=== PATIENT | male | born 1940 | race Caucasian/White ===

== ENCOUNTER 2016-11-13 13:57 | Inpatient (IN) | payer OTHER, MEDICARE ==
[~2016-11-13] VITALS: Ht 182.9 cm; Wt 77.7 kg
[~2016-11-13 13:57] MED LIST: ANTIVERT25 MG PO; ATORVASTATIN CA20 MG PO; B-121000 MC2 PO; BISOPROLOL-HCT1 EAC2 PO; CALCIUM PO; LEVOTHYROXINE75 MCG PO; LO-DOSE ASPIRIN81 M1 PO; MELATONIN1 MG PO; MEN'S MULTI-VI1 EACH PO; VITAMIN D2000 UNI1 PO
[2016-11-13 14:55] LABS: EOSINOPHIL (%) 0 % (0-5); HEMATOCRIT 33.6 % (38.0-50.0); IMMATURE GRANULOCYTE (%) 0.6 % (0.0-0.7); IMMATURE GRANULOCYTE COUNT 0.1 K/uL; INSTRUMENT ABS NEUTROPHIL CT 8.4 K/uL; LYMPHOCYTE COUNT 1.4 K/uL (1.0-2.8); MCH 31.9 PG (29.0-34.0); MCHC 34.2 G/DL (30.0-36.0); MCV 93.1 FL (86-99); MEAN PLAT.VOLUME 8.3 uM^3 (9.0-12.4); MONOCYTE (%) 8.4 % (3-12); MONOCYTE COUNT 0.9 K/uL (0-0.8); NEUTROPHIL (%) 78.2 % (45-76); NEUTROPHIL COUNT 8.4 K/uL (1.8-6.4); PLATELET COUNT 321 K/uL (156-360); RBC DIS.WIDTH-CV 12.8 % (11.8-14.6); RBC DIS.WIDTH-SD 43.5 % (39-53); RED BLOOD COUNT 3.61 M/uL (4.00-5.50); WHITE BLOOD COUNT 10.8 K/uL (4.1-10.2)
[2016-11-13 15:01] LABS: INTER. NORMALIZED RATIO 1.2; PROTHROMBIN TIME 13.2 SEC (10.2-12.9)
[2016-11-13 15:03] LABS: CHLORIDE 99 mEq/L (99-109); PTT 23.8 SEC (25-37); SODIUM 136 mEq/L (136-147)
[2016-11-13 15:06] LABS: GLUCOSE 95 mg/dL (70-99)
[2016-11-13 15:07] LABS: ANION GAP 9 MEQ/L (2-14)
[2016-11-13 15:08] LABS: TOTAL BILIRUBIN 0.5 mg/dL (0.0-1.0)
[2016-11-13 15:09] LABS: ALKALINE PHOSPHATASE 69 IU/L (3-129); GFR ESTIMATE (CALCULATED) > 59 mL/min/
[2016-11-13 15:10] LABS: UREA NITROGEN (BUN) 16 mg/dL (9-23)
[2016-11-13 15:15] LABS: TROP-I INTERPRETATION NEGATIVE; TROPONIN-I 0.02 ng/mL (0.0-0.30)
[2016-11-13 17:11] LABS: IRON 74 MCG/DL (35-150)
[2016-11-13 17:29] VITALS: BP 130/72
[2016-11-13 17:56] LABS: FERRITIN 61 NG/ML (22-322)
[2016-11-13] MEDS ORDERED: MECLIZINE HCL25 MG PO (19:20)
[2016-11-13] MEDS ORDERED: CLORAZEPATE DI7.5 MG PO ×2 (19:23→19:24)
[2016-11-13] MEDS ORDERED: SINGULAIR10 MG PO (19:23)
[2016-11-13] MEDS ORDERED: VENTOLIN HFA18 GM IH (19:23)
[2016-11-13] MEDS ORDERED: RAPAFLO8 MG PO (19:23)
[2016-11-13 21:36] LABS: INTER. NORMALIZED RATIO 1.2; PROTHROMBIN TIME 13.6 SEC (10.2-12.9)
[2016-11-13 21:58] LABS: TROP-I INTERPRETATION NEGATIVE; TROPONIN-I 0.02 ng/mL (0.0-0.30)
[2016-11-13 22:16] LABS: PTT 46.5 SEC (25-37)
[2016-11-13 23:50] VITALS: BP 121/71
[2016-11-14 06:38] LABS: HEMATOCRIT 30.6 % (38.0-50.0); MCH 31.2 PG (29.0-34.0); MCHC 33.3 G/DL (30.0-36.0); MCV 93.6 FL (86-99); PLATELET COUNT 310 K/uL (156-360); RBC DIS.WIDTH-CV 13.1 % (11.8-14.6); RBC DIS.WIDTH-SD 44.5 % (39-53); RED BLOOD COUNT 3.27 M/uL (4.00-5.50); WHITE BLOOD COUNT 7.2 K/uL (4.1-10.2)
[2016-11-14 07:02] LABS: ALKALINE PHOSPHATASE 56 IU/L (3-129); ANION GAP 8 MEQ/L (2-14); CHLORIDE 103 MEQ/L (99-109); GFR ESTIMATE (CALCULATED) > 59 mL/min/; GLUCOSE 101 mg/dL (70-99); POTASSIUM 3.8 MEQ/L (3.7-5.4); SAMPLE HEMOLYSIS CHECK 0; SAMPLE ICTERIC CHECK 0; SAMPLE LIPEMIA CHECK 0; SODIUM 142 MEQ/L (136-147); TOTAL BILIRUBIN 0.6 MG/DL (0.0-1.0); UREA NITROGEN (BUN) 13 mg/dL (9-23)
[2016-11-14 07:22] LABS: TROP-I INTERPRETATION NEGATIVE; TROPONIN-I < 0.01 ng/mL (0.0-0.30)
[2016-11-14 07:50] VITALS: BP 119/59
[2016-11-14 11:03] VITALS: BP 126/68
[2016-11-14 16:35] VITALS: BP 131/70
[2016-11-14 20:03] VITALS: BP 114/66
[2016-11-14 23:46] VITALS: BP 124/71
[2016-11-15 04:00] VITALS: BP 105/56
[2016-11-15 07:10] VITALS: BP 146/74
[2016-11-15] MEDS ORDERED: XARELTO15 MG PO (08:13)
[2016-11-15] MEDS ORDERED: XARELTO20 MG PO (08:14)
[2016-11-15 11:42] VITALS: BP 129/69
== END 2016-11-15 12:00 | disposition home or self-care (01) | DRG 176 ==
LOC: EME 13:57 → EDOF 14:32 → ENRESERV 14:44 → 5SOUTH 17:13
PROVIDERS: Internal Medicine; Physician Assistant
DX: I26.99 Other pulmonary embolism without acute cor pulmonale (principal); I51.7 Cardiomegaly; I11.9 Hypertensive heart disease without heart failure; E78.5 Hyperlipidemia, unspecified; E03.9 Hypothyroidism, unspecified; M79.669 Pain in unspecified lower leg; N40.0 Benign prostatic hyperplasia without lower urinary tract symptoms; D64.9 Anemia, unspecified; Z87.891 Personal history of nicotine dependence
CPT/HCPCS: 36415; 74176; 80053; 81240 90; 82272; 82607; 82728; 82746; 83090 90; 83540; 83880; 84443; 84466; 84484; 85025; 85027; 85240 90; 85300 90; 85303 90; 85305 90; 85306 90; 85379; 85610; 85613 90; 85730; 85730 90; 86146 90; 86147 90; 93005; 93970; 99202; 99281; 99285; J7030; S0028

== ENCOUNTER → 2017-04-15 | Outpatient (CLI) | payer OTHER, MEDICARE ==
[~2017-04-15] MED LIST changes: +CLORAZEPATE DI7.5 MG PO; +MECLIZINE HCL25 MG PO; +RAPAFLO8 MG PO; +SINGULAIR10 MG PO; +VENTOLIN HFA18 GM IH; +XARELTO15 MG PO; +XARELTO20 MG PO
== END | disposition home or self-care (01) ==
LOC: NUC 10:42
DX: I27.20 Pulmonary hypertension, unspecified (principal); Z86.711 Personal history of pulmonary embolism
CPT/HCPCS: 78582; A9540; A9567